=== PATIENT | female | born 1955 | race Caucasian/White ===

== ENCOUNTER 2022-06-25 15:15 | Emergency (ER) | payer MEDICARE, OTHER ==
[~2022-06-25] VITALS: Ht 160 cm; Wt 81.6 kg
[~2022-06-25 15:15] MED LIST: OMNICEF 300 MG300 MG PO
[2022-06-25 16:21] LABS: HEMOGLOBIN 14.1 gm/dl (12.3-15.3); RED BLOOD COUNT 4.63 M/UL (4.00-5.10)
[2022-06-25 16:32] LABS: BUN/CREATININE RATIO 16 (0-10)
== END 2022-06-25 19:36 | disposition home or self-care (01) ==
LOC: ER1 15:15
PROVIDERS: Preventive Medicine Occupational Medicine
DX: U07.1 COVID-19 (principal); Z23 Encounter for immunization; E11.9 Type 2 diabetes mellitus without complications; I10 Essential (primary) hypertension; Z95.1 Presence of aortocoronary bypass graft
CPT/HCPCS: 0240U; 71045; 80053; 81001; 82550; 82553; 83605; 83690; 83880; 84484; 85025; 85652; 86140; 87077; 87086; 87186; 93005; 94664; 96374; 99285; J0696; M0222